=== PATIENT | female | born 2005 | race Two or more races ===

== ENCOUNTER 2025-02-12 13:40 | Emergency (ER) | payer MEDICAID, SELFPAY ==
[2025-02-12 13:41] VITALS: BMI 39.4
[2025-02-12 13:54] VITALS: BP 131/84; PULSE 94; RESP 18; TEMP 37.5; O2SAT 97
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
[2025-02-12] MEDS: IBUPROFEN TAB 400 MG TABLET 800 MG PO (15:01)
[2025-02-12 16:51] VITALS: BP 128/89; PULSE 78; RESP 18; TEMP 37.2; O2SAT 96
== END 2025-02-12 16:52 | disposition home or self-care (01) ==
PROVIDERS: Emergency Provider Emergency Medicine; PCP Family Medicine
DX: S89.92XA Unspecified injury of left lower leg, initial encounter (principal); S69.91XA Unspecified injury of right wrist, hand and finger(s), initial encounter; V89.2XXA Person injured in unspecified motor-vehicle accident, traffic, initial encounter
CPT/HCPCS: 73110; 73562; 99283; A9270